=== PATIENT | female | born 1995 | race Caucasian/White ===

== ENCOUNTER 2018-01-07 08:00 | Outpatient (CLI) | payer OTHER ==
[2018-01-07 15:50] LABS: BILIRUBIN,URINE NEGATIVE (NEGATIVE); GLUCOSE, URINE (UA) NEGATIVE (NEGATIVE); KETONES,URINE (UA) NEGATIVE (NEGATIVE); LEUKOCYTE ESTERASE, URINE NEGATIVE (NEGATIVE); NITRITE,URINE NEGATIVE (NEGATIVE); OCCULT BLOOD,URINE NEGATIVE (NEGATIVE); PROTEIN,URINE NEGATIVE (NEGATIVE); UROBILINOGEN,URINE 0.2 (NORMAL) E.U./dL (NORMAL)
[2018-01-07 16:06] LABS: BACTERIA,URINE Rare /HPF (None Seen); CLARITY,URINE CLEAR (CLEAR); EPITHELIAL CELLS,UR RARE Transitional /HPF (<= Few); RBC,URINE None Seen /HPF (0-5); SQUAMOUS EPITHELIAL CELL,UR NONE SEEN (<= Few)
== END 2018-01-07 08:01 | disposition home or self-care (01) ==
LOC: LAB.R 08:00
PROVIDERS: ATTEND Obstetrics & Gynecology
DX: N39.45 Continuous leakage (principal)
CPT/HCPCS: 81001; 87086

== ENCOUNTER 2019-03-11 08:00 | Outpatient (CLI) | payer OTHER ==
[2019-03-11 18:37] LABS: BASOPHILS % (AUTO) 0.9 %; EOSINOPHILS # (AUTO) 0.1 10^3/uL (0.0-0.7); EOSINOPHILS % (AUTO) 1.8 %; HGB - HEMOGLOBIN 13.1 g/dL (12.0-16.0); LYMPHOCYTES # (AUTO) 1.5 10^3/uL (1.5-3.5); LYMPHOCYTES % (AUTO) 44.7 %; MEAN CORPUSCULAR HGB CONC 31.5 g/dL (32.0-36.0); MEAN CORPUSCULAR VOLUME 88.9 fL (81.0-99.0); MEAN PLATELET VOLUME 9.7 fL (7.9-10.8); MONOCYTES # (AUTO) 0.4 10^3/uL (0.0-1.0); MONOCYTES % (AUTO) 10.5 %; NEUTROPHILS # (AUTO) 1.4 10^3/uL (1.5-6.6); NEUTROPHILS % (AUTO) 41.8 %; PLT - PLATELET COUNT 334 10^3/uL (130-450); RED BLOOD COUNT 4.68 10^6/uL (4.20-5.40); RED CELL DISTRIBUTION WIDTH 12.5 % (12.0-15.0); WHITE BLOOD COUNT 3.4 x10^3/uL (4.8-10.8)
[2019-03-11 18:48] LABS: ALBUMIN 4.2 g/dL (3.2-5.5); ALBUMIN/GLOBULIN RATIO 1.2 (1.0-2.2); BILIRUBIN,TOTAL 0.3 mg/dL (0.2-1.0); CALCIUM 10.1 mg/dL (8.5-10.3); CREATININE 0.6 mg/dL (0.4-1.0); TOTAL PROTEIN 7.7 g/dL (6.7-8.2)
== END 2019-03-11 08:01 | disposition home or self-care (01) ==
LOC: LAB.WCP 08:00
PROVIDERS: ATTEND Physician Assistant
DX: Z00.00 Encounter for general adult medical examination without abnormal findings (principal)
CPT/HCPCS: 36415; 80053; 84443; 85025

== ENCOUNTER 2019-12-27 09:28 | Outpatient (CLI) | payer OTHER ==
[2019-12-27 18:45] LABS: H. PYLORIS ANTIGEN STL NEGATIVE (Negative)
== END 2019-12-27 23:59 | disposition home or self-care (01) ==
LOC: LAB.WCP 09:28
PROVIDERS: ATTEND Nurse Practitioner Family
DX: K21.9 Gastro-esophageal reflux disease without esophagitis (principal)
CPT/HCPCS: 87338

== ENCOUNTER 2020-01-20 07:00 | Outpatient (CLI) | payer OTHER | END 2020-01-20 23:59 | disposition home or self-care (01) | LOC: LAB.R 07:00 | PROVIDERS: ATTEND Family Medicine | DX: R30.0 Dysuria (principal) | CPT/HCPCS: 87086; 87181 ==

== ENCOUNTER 2020-05-30 08:00 | Outpatient (CLI) | payer OTHER ==
[2020-05-30 18:11] LABS: BASOPHILS % (AUTO) 0.5 %; EOSINOPHILS % (AUTO) 0.3 %; LYMPHOCYTES # (AUTO) 1.7 10^3/uL (1.5-3.5); LYMPHOCYTES % (AUTO) 27.4 %; MEAN CORPUSCULAR HEMOGLOBIN 29.4 pg (27.0-31.0); MEAN CORPUSCULAR HGB CONC 33.5 g/dL (32.0-36.0); MEAN CORPUSCULAR VOLUME 87.8 fL (81.0-99.0); MEAN PLATELET VOLUME 9.6 fL (7.9-10.8); MONOCYTES # (AUTO) 0.5 10^3/uL (0.0-1.0); MONOCYTES % (AUTO) 7.6 %; PLT - PLATELET COUNT 317 10^3/uL (130-450); RED BLOOD COUNT 4.42 10^6/uL (4.20-5.40); RED CELL DISTRIBUTION WIDTH 12.2 % (12.0-15.0); WHITE BLOOD COUNT 6.2 x10^3/uL (4.8-10.8)
[2020-05-30 18:41] LABS: ALBUMIN 4.5 g/dL (3.2-5.5); ALBUMIN/GLOBULIN RATIO 1.3 (1.0-2.2); BILIRUBIN,TOTAL 0.4 mg/dL (0.2-1.0); CALCIUM 9.7 mg/dL (8.5-10.3); CREATININE 0.8 mg/dL (0.4-1.0); TOTAL PROTEIN 7.9 g/dL (6.7-8.2)
== END 2020-05-30 23:59 | disposition home or self-care (01) ==
LOC: LAB.WCP 08:00
PROVIDERS: ATTEND Physician Assistant
DX: R53.83 Other fatigue (principal); E55.9 Vitamin D deficiency, unspecified
CPT/HCPCS: 36415; 80053; 82306; 84443; 85025

== ENCOUNTER 2020-06-25 11:00 | Outpatient (CLI) | payer OTHER ==
--- NOTE | 2020-06-25 14:09 | SLEEP CARE CONSULTATION ---
Information from patient questionnaire entered by Carolina Paz. I have reviewed and concur with the information entered by Carolina Paz. This document represents the service I personally performed and the decisions made by me, Shanika Thakur MD, [facility]. History of Present Illness Service Date and Time: 06/25/2020 1100 Reason for Visit: New patient Chief Complaint: reports: Insomnia, Unrefreshed sleep, Excessive daytime sleepiness, Fatigue, Frequent awakenings at night Date of Onset: as long as I can remember Usual bedtime: 9:30-10:30 pm Time it takes to fall asleep: about an hour Snores at night: No Observed to quit breathing while asleep: Yes Sleeps alone due to snoring: No Number of times waking at night: 2 Reasons for waking at night: reports: Other (I'm suddenly awake) Toss, Turn, or Twitch while sleeping: Yes Recalls having dreams: No Usually gets out of bed at: 6:30 am Feels refreshed in the morning: No Morning headache: Yes Sleepy or fatigued during the day: Yes Ever fallen asleep while driving: No Takes day naps: Yes Dreams during day naps: No Prior sleep studies: No Additional HPI information: I had the pleasure of seeing Ms. Sanchez today regarding the possibility of her having a sleep disorder. As you know, she is a 25 year old lady who complains of insomnia and fatigue. The patient tells me that she normally goes to bed around 9:30 10:30 pm, and it takes her approximately 60 minutes to fall asleep. She says that she goes to bed an hour early because it takes her an hour to fall asleep. She took trazodone briefly but did not like its side effect of feeling groggy in the morning. She has not been told that she snores loudly or irregularly at night. She has never been observed to stop breathing in her sleep. However, she sleeps alone with her dog. She can recall waking up on the average of 2 times during the night. Most of the time she wakes up because of no apparent reason. She has awakened occasionally because of choking and gasping. There is a lot of tossing and turning in her sleep. No somniloquy (sleep talking) or somnambulism (sleep walking). Generally there is no recollection of dreams. In the morning she usually gets up out of the bed around 6:30 a.m. not feeling refreshed nor rested. On weekends, she goes back to sleep and wakes up finally around 10 am. She usually has a morning headache that goes away within an hour. During the day she complains of feeling sleepy and fatigued. Her score on [place] Sleepiness Scale is 12 out of 24. She has never fallen asleep while driving nor has had any accident due to sleepiness. She occasionally takes a nap during the day. Upon falling asleep during the day she denies having vivid dreams. She has sleep paralysis about twice a month during naps. She reports symptoms of restless leg syndrome. She reports having impaired concentration during the day. 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 Patient is Single and lives in [place]. Have you smoked in the past 12 months: No Alcohol use: No Family History Family history of sleep disordered breathing: Yes (mom) Family Hx Sleep Apnea: Mother: Snoring Allergies and Home Medications Drug allergies reviewed: Yes Home medication list reviewed: Yes (sertraline, albuterol, Nisa, and probiotics) Review of Systems Weight gain over past 5 years: 10 Cardiovascular: denies: high blood pressure, palpitations, chest pain, irregular heart rate or pulse, leg or foot swelling, have to sleep sitting up, other Respiratory: reports: shortness of breath Gastrointestinal: reports: abdominal pain Urinary: reports: incontinence, frequency, urgency Neurological: reports: headaches Psychiatric: reports: anxiety, depression Ear/Nose/Throat: reports: dry mouth/throat, wisdom teeth removed Endocrine: reports: sluggishness, excessive thirst, unexplained weakness Musculoskeletal: reports: joint pain Immunologic: denies: sneezing, rash, itching, allergies to food or environment, other Physical Exam Vital signs obtained and entered by: To minimize the risk of COVID-19 exposure, detailed exam was not performed. Height: 5 ft 3 in Weight: 120 lb Body Mass Index: 21.2 BMI Classification: Healthy weight Impression and Plan IMPRESSION: 1. Insomnia, due mainly to excessive time spent in bed. Presently, the patient goes to bed at 9:30 pm and gets up at 6:30 am, which is 9 hours. On weekends, there is an additional 3.5 hours of time spent in bed. On top of that, she occasionally naps during the day. I explained to her that with these many hours of time allowed for sleeping, she will not be able to sleep through and will have to lie awake for hours. She was advised to limit time spent in bed to not more than 8 hours. First, she should not go to bed any earlier than 10:30 pm if she keeps the wakeup time at 6:30 am. Then, on weekends, she should not go back to sleep after waking up at 6:30 am to let her dog out. Naps should be avoided. A sleep study will be performed to see if she has sleep disrupting conditions such as sleep-disordered breathing given her symptoms of nocturnal choking, unrefreshed sleep, morning headache, and excessive daytime sleepiness. Pathophysiology of sleep-disordered breathing was discussed. I informed the patient of what the sleep studies involve and after some discussion, she agreed to proceed. Plan: 1. Schedule an in-laboratory polysomnography. 2. Avoid long distance driving or when feeling sleepy. 3. Maintain a regular wake up time and spend no more than 8 hours in bed at night. Avoid naps. 4. Return in 1 to 2 weeks after the study to discuss results and initiate therapy. Visit Type: In Office Time Spent with Patient (minutes): 15 Provider Statement: I spent 100% of the Face to Face Visit with the patient with greater than 50% spent counseling the patient and coordination of care.
== END 2020-06-25 11:01 | disposition home or self-care (01) ==
LOC: SC 11:00
PROVIDERS: ATTEND Internal Medicine Pulmonary Disease
DX: G47.00 Insomnia, unspecified (principal); G47.10 Hypersomnia, unspecified; G47.8 Other sleep disorders; R51.9 Headache, unspecified
CPT/HCPCS: 99203; 99212

== ENCOUNTER 2020-11-14 08:00 | Outpatient (CLI) | payer BC ==
[2020-11-15 05:05] LABS: PROGESTERONE 1.3 ng/mL
== END 2020-11-14 23:59 | disposition home or self-care (01) ==
LOC: LAB.WCP 08:00
PROVIDERS: ATTEND Nurse Practitioner Family
DX: E55.9 Vitamin D deficiency, unspecified (principal); N92.6 Irregular menstruation, unspecified
CPT/HCPCS: 36415; 82306; 82670; 83001; 84144